=== PATIENT | female | born 1950 | race Caucasian/White ===

== ENCOUNTER 2017-03-24 08:15 | Emergency (ER) | payer OTHER ==
[~2017-03-24] VITALS: Ht 162.6 cm; Wt 68.4 kg
[~2017-03-24 08:15] MED LIST: ADVIL200 MG PO; ASCORBIC ACID500 M3 PO; CALCIUM 500 MG1 EACH PO; CRANBERRY 4001 EAC1 PO; GARLIC1 EACH PO; GLIMEPIRIDE1 MG PO; HYDROCHLOROTHIA25 MG PO; LO-DOSE ASPIRIN81 M1 PO; MAGNESIUM400 M1 PO; POTASSIUM-9999 MG PO; SIMVASTATIN80 MG PO
[2017-03-24 09:38] LABS: HEMATOCRIT 35.5 % (36.0-46.0); MCH 26.8 PG (29.0-34.0); MCHC 32.7 G/DL (30.0-36.0); MEAN PLAT.VOLUME 8.6 uM^3 (9.5-12.4); PLATELET COUNT 447 K/uL (156-360); RBC DIS.WIDTH-CV 12.5 % (11.8-14.6); RBC DIS.WIDTH-SD 37.7 % (39-53); RED BLOOD COUNT 4.33 M/uL (3.80-5.20); WHITE BLOOD COUNT 13.2 K/uL (4.1-10.2)
[2017-03-24 09:49] LABS: CHLORIDE 102 mEq/L (99-109); POTASSIUM 3.6 mEq/L (3.7-5.4); SODIUM 140 mEq/L (136-147)
[2017-03-24 09:51] LABS: GLUCOSE 128 mg/dL (70-99)
[2017-03-24 09:52] LABS: ANION GAP 13 MEQ/L (2-14)
[2017-03-24 09:53] LABS: TOTAL BILIRUBIN 0.5 mg/dL (0.0-1.0)
[2017-03-24 09:55] LABS: ALKALINE PHOSPHATASE 89 IU/L (3-129); GFR ESTIMATE (CALCULATED) > 59 mL/min/
[2017-03-24 09:56] LABS: UREA NITROGEN (BUN) 33 mg/dL (9-23)
[2017-03-24 09:58] LABS: LIPASE 4 U/L (1.0-51.0)
[2017-03-24 10:58] LABS: ADD MIUA? YES; BILIRUBIN NEGATIVE; BLOOD SMALL; COLOR YELLOW ((YELLOW)); GLUCOSE (STRIP) NEGATIVE; KETONES 80; LEUKOCYTES LARGE; NITRITE NEGATIVE; PROTEIN (STRIP) 100; UROBILINOGEN 0.2 MG/DL (0.2-1.0)
[2017-03-24 11:15] LABS: BACTERIA RARE /HPF; EPITHELIAL CELLS RARE /HPF; GRANULAR CASTS 0-5 /LPF; HYALINE CASTS 15-20 /LPF; MUCUS 3+ /LPF; RED BLOOD CELLS 20-30 /HPF (0-5); WHITE BLOOD CELLS 40-50 /HPF (0-5)
[2017-03-24 11:17] LABS: EOSINOPHIL (%) 0 % (0-5); IMMATURE GRANULOCYTE (%) 0.4 % (0.0-0.7); IMMATURE GRANULOCYTE COUNT 0.1 K/uL; INSTRUMENT ABS NEUTROPHIL CT 10.8 K/uL; LYMPHOCYTE COUNT 1.5 K/uL (1.0-2.8); MONOCYTE (%) 6.5 % (3-12); MONOCYTE COUNT 0.9 K/uL (0-0.8); NEUTROPHIL (%) 81.8 % (45-76); NEUTROPHIL COUNT 10.8 K/uL (1.8-6.4)
[2017-03-24 11:53] LABS: SPECIFIC GRAVITY 1.072 (1.000-1.030)
[2017-03-24] MEDS ORDERED: CIPRO500 MG PO (12:23)
[2017-03-24] MEDS ORDERED: FLAGYL500 MG PO (12:23)
[2017-03-24 12:34] VITALS: BP 127/77
== END 2017-03-24 12:57 | disposition home or self-care (01) ==
LOC: EME 08:15
PROVIDERS: Emergency Medicine
DX: K52.9 Noninfective gastroenteritis and colitis, unspecified (principal); N39.0 Urinary tract infection, site not specified; Z98.890 Other specified postprocedural states; Z90.710 Acquired absence of both cervix and uterus; I10 Essential (primary) hypertension; E11.9 Type 2 diabetes mellitus without complications; Z79.84 Long term (current) use of oral hypoglycemic drugs; Z79.82 Long term (current) use of aspirin; Z87.891 Personal history of nicotine dependence
CPT/HCPCS: 74177; 80053; 81003; 83690; 85025; 99281; 99285; J1885; J2405; J7030